=== PATIENT | female | born 2000 ===

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

== ENCOUNTER 2018-01-27 15:13 | Emergency (ER) | payer MEDICAID ==
[2018-01-27 15:22] VITALS: RESP 16
--- NOTE | 2018-01-27 15:50 | ED PDOC ---
HPI: CCC, URI, Sore Throat Time Seen by Provider: 01/27/18 15:29 Chief Complaint (Nursing): Cough, Cold, Congestion Chief Complaint (Provider): Cough, cold, congestion History Per: Patient History/Exam Limitations: no limitations Onset/Duration Of Symptoms: Days (x2) Current Symptoms Are (Timing): Still Present Location Of Pain: Throat Sick Contacts (Context): Individual(s) At Work Associated Symptoms: Fever, Sore Throat, Cough, Nasal Congestion. denies: Nausea, Vomiting, Diarrhea Ear Symptoms: Bilateral: None Additional Complaint(s): Dorinda Huertas is a 17 year old female, with no significant past medical history, who presents to the emergency department complaining of a of cough, fever, nasal congestion, and sore throat onset for x2 days. Patient has been taking Dayquil and Nyquil with minimal relief. 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 She denies any vomiting, diarrhea, rash or swelling. Patient is also here for numbness to her left great toe onset for x3 days. She states it started at the tip and it now involves the entire toe. She denies any pain or injuries. Patient reports in her new job she has to work w/o shoes but wears socks all the time. She denies any other medical complaints. PMD: [facility]. Past Medical History Reviewed: Historical Data, Nursing Documentation, Vital Signs Vital Signs: Last Vital Signs Temp 98.7 F 01/27/18 18:05 Pulse 81 01/27/18 18:05 Resp 16 01/27/18 18:05 BP 103/60 01/27/18 18:05 Pulse Ox 96 01/27/18 18:08 - Medical History PMH: Asthma (asthma as child) - Surgical History Surgical History: No Surg Hx - Family History Family History: States: Unknown Family Hx - Social History Current smoker - smoking cessation education provided: No Alcohol: Social Drugs: Denies - Home Medications Home Medications: Ambulatory Orders Medication Instructions Recorded Doxylamine/Pyridoxine HCl (B6) 1 each PO QPM PRN #20 tablet. 02/09/17 [Tl Mathias 10-10 mg Tablet] Acetaminophen [Tylenol Extra 1,000 mg PO Q6 PRN #60 tablet 01/27/18 Strength] Naproxen [Naprosyn] 1 tab PO BID PRN #30 tab 01/27/18 - Allergies Allergies/Adverse Reactions: Allergies Allergy/AdvReac Type Severity Reaction Status Date / Time No Known Allergies Allergy Verified 02/09/17 13:11 Review of Systems ROS Statement: Except As Marked, All Systems Reviewed And Found Negative Constitutional: Positive for: Fever ENT: Positive for: Nose Congestion, Throat Pain Respiratory: Positive for: Cough Gastrointestinal: Negative for: Nausea, Vomiting, Diarrhea Skin: Negative for: Rash (swelling) Neurological: Positive for: Numbness (left great toe) Physical Exam - Reviewed Nursing Documentation Reviewed: Yes Vital Signs Reviewed: Yes - Physical Exam Appears: Positive for: Well (febrile), No Acute Distress Head Exam: Positive for: ATRAUMATIC, NORMOCEPHALIC Skin: Positive for: Warm, Dry Eye Exam: Positive for: EOMI, PERRL ENT: Positive for: Tonsillar Swelling (mildly enlarged and erythematous bilaterally). Negative for: Tonsillar Exudate Neck: Positive for: Painless ROM, Supple Cardiovascular/Chest: Positive for: Tachycardia (regular rhythm). Negative for : Murmur Respiratory: Positive for: Normal Breath Sounds. Negative for: Wheezing, Respiratory Distress Pulses-Dorsalis Pedis (L): 2+ Pulses-Post. Tibialis (L): 2+ Gastrointestinal/Abdominal: Positive for: Soft. Negative for: Tenderness, Mass , Distended, Guarding, Rebound Back: Negative for: L CVA Tenderness, R CVA Tenderness, Vertebral Tenderness Extremity: Positive for: Normal ROM (flexion and extension at IP and MTS joints normal.), Capillary Refill (<2 sec), Other (Light touch intact. Strong DP and PT pulses). Negative for: Tenderness (left great toe.), Deformity (left great toe), Swelling (left great toe, no redness) Neurologic/Psych: Positive for: Alert, Oriented. Negative for: Motor/Sensory Deficits - ECG O2 Sat by Pulse Oximetry: 96 (RA) Pulse Ox Interpretation: Normal Medical Decision Making Medical Decision Making: Time: 15:29 Initial Impression: - Febrile respiratory infection. Differential includes but not limited to viral syndrome, flu, strep, PNA. - Numbness to great toe. Benign exam findings. Initial Plan: --Urine --Chest two views (PA/LAT) [RAD] --Influenza A B --Rapid Strep Group A Antigen --Reevaluation 16:27 CXR FINDINGS: LUNGS: No active pulmonary disease. PLEURA: No significant pleural effusion identified. No pneumothorax apparent. CARDIOVASCULAR: Normal. OSSEOUS STRUCTURES: No significant abnormalities. VISUALIZED UPPER ABDOMEN: Normal. OTHER FINDINGS: None. IMPRESSION: No active disease. Serologies negative 6p Fever and HR resolving in ER. Pt to continue symptomatic treatment for symptoms. Advised rest and fluids and f/u PMD in 48 hours. Also advised to f/u Podiatry clinic for toe numbness if persists. Likely simply due to increased activity without shoes due to work so expectant management at this time. ----- Scribe Attestation: Documented by Jarrett Kumari, acting as a scribe for Cece Leroy MD. Provider Scribe Attestation: All medical record entries made by the Scribe were at my direction and personally dictated by me. I have reviewed the chart and agree that the record accurately reflects my personal performance of the history, physical exam, medical decision making, and the department course for this patient. I have also personally directed, reviewed, and agree with the discharge instructions and disposition. Disposition - Clinical Impression Clinical Impression: URI (upper respiratory infection), Fever, Numbness of toes - Disposition Referrals: [facility] [Outside] [facility] [Outside] () Disposition: Routine/Home Disposition Time: 17:45 Condition: IMPROVED Additional Instructions: DRINK PLENTY OF HYDRATING FLUIDS AND REST FOLLOW UP WITH YOUR DOCTOR IN 48 HOURS FOR REEVALUATION IF THE NUMBNESS IN YOUR TOE DOES NOT RESOLVE IN A WEEK, PLEASE FOLLOW UP WITH PODIATRY CLINIC. Prescriptions: Acetaminophen [Tylenol Extra Strength] 1,000 mg PO Q6 PRN #60 tablet PRN Reason: FEVER OR PAIN Naproxen [Naprosyn] 1 tab PO BID PRN #30 tab PRN Reason: Pain Instructions: Viral Upper Respiratory Infection, Adult (DC) Forms: [facility] ED School/Work Excuse, [facility] (Chinese)
--- NOTE | 2018-01-27 16:30 | RAD ---
HISTORY: fever cough COMPARISON: No prior. TECHNIQUE: Chest PA and lateral FINDINGS: LUNGS: No active pulmonary disease. PLEURA: No significant pleural effusion identified. No pneumothorax apparent. CARDIOVASCULAR: Normal. OSSEOUS STRUCTURES: No significant abnormalities. VISUALIZED UPPER ABDOMEN: Normal. OTHER FINDINGS: None. IMPRESSION: No active disease.
[2018-01-27 18:05] VITALS: BP 103/60; PULSE 81; TEMP 98.7
[2018-01-27 18:08] VITALS: O2SAT 96
== END 2018-01-27 18:44 | disposition home or self-care (01) ==
LOC: H.ER 15:13
DX: R50.9 Fever, unspecified (principal); J06.9 Acute upper respiratory infection, unspecified; R20.2 Paresthesia of skin; J45.909 Unspecified asthma, uncomplicated; Z36.9 Encounter for antenatal screening, unspecified